=== PATIENT | male | born 1970 | race Caucasian/White ===

== ENCOUNTER → 2016-11-02 | Outpatient (CLI) | payer BC ==
[~2016-11-02] MED LIST: FISHOIL PO; [UNRECOGNIZED DRUG - OTHER] PO
--- NOTE | 2016-11-02 08:42 | DIAGNOSTIC IMAGING REPORT ---
CHEST 2 VIEWS ROUTINE CLINICAL HISTORY: COUGH COMPARISON STUDY: No previous studies for comparison. FINDINGS: The cardiac and mediastinal contours are normal. There is no evidence of focal pulmonary consolidation. There is no evidence of failure. No pleural effusions are visualized.[ IMPRESSION: No active disease in the chest. Electronically signed by: Salinas Torres M.D. 11/02/2016 8:41 AM Dictated Date/Time: 11/02/2016 8:41 AM
== END | disposition home or self-care (01) ==
LOC: C.RAD 08:22
PROVIDERS: ATTEND Family Medicine
DX: R09.89 Other specified symptoms and signs involving the circulatory and respiratory systems (principal); R05 Cough